=== PATIENT | female | born 1985 | race American Indian/Alaskan Native ===

== ENCOUNTER 2018-11-26 08:24 | Inpatient (IN) | payer MEDICAID ==
[2018-11-26] MEDS ORDERED: XYLOCAINE 2% INFILTRATI ONE (09:53)
[2018-11-26] MEDS ORDERED: PITOCin/NS 20 UNIT/1000ML DRIP 20 UNITS/1,000 ML BAG IV SCH (10:00)
[2018-11-26] MEDS ORDERED: LACTATED RINGERS 1,000 ML IV SCH (10:00)
--- NOTE | 2018-11-26 10:10 | History and Physical Report ---
History of Present Illness Date of examination: 11/26/18 Date of admission: 11/26/18 09:28 Chief complaint: Contractions History of present illness: 33 year old presented to L&D room and delivered a viable male prior to nurse notifying provider of patient's arrival here in labor. Patient received care at [facility] and records were able to be accessed. LMP 03/11/18. EDC 12/16/18. 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 labs are as follows: B+, antibody screen negative, hepatitis B surface antigen negative, HIV negative, RPR nonreactive, panorama low risk, AFP negative, 1 hour sugar test 80 mg/dl, chlamydia negative, gonorrhea negative, trichomonas negative, GBS negative. Patient denies headache, visual disturbance, nausea or vomiting, swelling, or epigastric pain. Past History Past Medical History: other (enlarged thyroid, subclinical hyperthyroidism, history of preeclampsia) Past Surgical History: no surgical history [facility] History: chlamydia (history of chlamydia prior to , treated and cured), gonorrhea (history of gonorrhea prior to , treated and cured), herpes (+ HSV 2 serology, on Valtrex suppression). denies: abnormal PAP smear, hepatitis B, hepatitis C, HIV, syphilis, trichomonas Family/Genetic History: hypertension, cancer Social history: single, lives with family, full code. denies: smoking, alcohol abuse, prescription drug abuse, IV drug use - Obstetrical History Expected Date of Delivery: 12/16/18 Actual Gestation: 37 Week(s) 1 Day(s) : 7 Para: 3 Hx # Term Pregnancies: 3 Number of Pregnancies: 0 Spontaneous Abortions: 3 Induced : 0 Number of Living Children: 3 Medications and Allergies Allergies Allergy/AdvReac Type Severity Reaction Status Date / Time No Known Allergies Allergy Verified 01/11/14 03:56 Home Medications Medication Instructions Recorded Confirmed Last Taken Type Ferrous Sulfate [Feosol 325 MG tab] 325 mg PO BID #60 tablet 01/05/14 04/04/15 01/10/14 Rx Ibuprofen [Motrin 600 MG tab] 600 mg PO Q6H PRN #30 tablet 01/05/14 04/04/15 01/23/14 09:00 Rx Vit-Fe Fumar-FA [ 1 each PO QDAY #30 tablet 01/05/14 04/04/15 01/10/14 Rx Vitamin] HYDROcodone/APAP 5-325 [[place] 1 each PO Q8HR PRN #7 tablet 01/11/14 04/04/15 01/23/14 09:00 Rx 5/325] Labetalol [Labetalol 200mg TAB] 100 mg PO BID #60 tablet 01/24/14 04/04/15 Unknown Rx Ibuprofen [Motrin 800 MG tab] 800 mg PO TID PRN #30 tablet 04/04/15 Unknown Rx Active Meds: Active Medications Oxytocin/Sodium Chloride (Pitocin/Ns 20 Unit/1000ml Drip) 20 units in 1,000 mls @ 125 mls/hr IV DIRECT RAFFY Lactated Ringer's (Lactated Ringers) 1,000 mls @ 125 mls/hr IV DIRECT RAFFY Labetalol HCl (Normodyne) 200 mg PO BID [facility] Review of Systems All systems: negative (contractions) - Vital Signs Vital signs: Vital Signs Pulse BP 64 162/94 11/26/18 09:45 11/26/18 09:45 Temp Pulse Resp BP Pulse Ox 70 157/77 11/26/18 10:00 11/26/18 10:00 - Physical Exam Abdomen: Positive: normal appearance, soft. Negative: distention, tenderness, guarding, rigidity Genitourinary (Female): Positive: normal external genitalia, normal perenium. Negative: perineal/vulvar lesions Vagina: Positive: other (moderate amount of lochia rubra) Uterus: Positive: enlarged, other (fundus firm and below umbilicus (first exam was done by provider after patient delivered en route to labor room)). Negative: tender Anus/Rectum: Positive: normal perianal skin Extremities: Positive: normal. Negative: tenderness, edema Results All other labs normal. Assessment and Plan A: at 37 1/7 weeks gestation, who delivered precipitously upon presentation to L&D unit and prior to provider being notified by nurse that patient was here in labor. Provider was notified after delivery of baby that patient had delivered, and placenta was delivered by CNM. P: Admit. BP monitoring. Preeclamptic labs. Labetalol 200 mg po BID. See orders.
--- NOTE | 2018-11-26 10:22 | Procedure Note ---
OB Delivery Note - Delivery Date of Delivery: 11/26/18 Surgeon: STEPHANIE VELEZ Estimated blood loss: 100cc - Vaginal Delivery presentation: vertex Delivery position: OA Intrapartum events: precipitous labor- <3hr (According to RN, patient delivered en route to labor room and prior to provider being notified that patient was here in labor) Delivery induction: none Delivery monitor: none Route of delivery: Delivery placenta: spontaneous Delivery cord: 3 umbilical vessels Episiotomy: none Delivery laceration: none Anesthesia: none Delivery comments: Precipitous spontaneous vaginal delivery at 09:20 of liveborn male weighing 4 lb. 13 oz. over intact perineum with apgars of 8/9. According to RN, patient delivered en route to labor room and prior to provider being notified that patient was here in labor or having contractions. Placenta delivered spontaneously and intact by nichols mechanism. EBL 100 cc. No lacerations noted. Vaginal sweep negative. Sponge count correct. Fundus firm and midline. IM Pitocin given. Mother and baby stable in birthing room.
[2018-11-26 10:54] LABS: Hematocrit 36.7 % (30.3-42.9); Hemoglobin 12.4 gm/dl (10.1-14.3); Mean Corpuscular HGB Conc 34 % (30-34); Mean Corpuscular Volume 89 fl (79-97); Platelet Count 192 K/mm3 (140-440); Red Blood Count 4.13 M/mm3 (3.65-5.03); Red Cell Distribution Width 14.2 % (13.2-15.2)
[2018-11-26 11:33] LABS: Alanine Aminotransferase 5 units/L (7-56); Albumin 3.7 g/dL (3.9-5); BUN/Creatinine Ratio 10; Blood Urea Nitrogen 6 mg/dL (7-17); Hemolysis Index 2
[2018-11-26] MEDS ORDERED: BENADRYL PO PRN (12:39)
[2018-11-26] MEDS ORDERED: TUCKS PAD TP PRN (12:39)
[2018-11-26] MEDS ORDERED: DULCOLAX PR PRN (12:39)
[2018-11-26] MEDS ORDERED: MILK OF MAGNESIA PO PRN (12:39)
[2018-11-26] MEDS ORDERED: LANSINOH TP PRN (12:39)
[2018-11-26] MEDS ORDERED: SODIUM CHLORIDE FLUSH SYRINGE 10 ML IV NR (13:00)
[2018-11-26] MEDS: IBUPROFEN PO SCH ×2 (13:07→20:53)
[2018-11-26 13:48] LABS: Bilirubin,Urine NEG (Negative); Blood,Urine LG (Negative); Color,Urine Red (Yellow); Urobilinogen,Urine < 2.0 mg/dL (<2.0)
[2018-11-26 13:50] LABS: RBC,Urine > 182.0 /HPF (0.0-6.0)
[2018-11-26 13:55] LABS: Amphetamine Screen,Urine PRESUMPTIVE NEGATIVE; Benzodiazepines Screen,Urine PRESUMPTIVE NEGATIVE; Cocaine Screen,Urine PRESUMPTIVE NEGATIVE; Methadone Screen,Urine PRESUMPTIVE NEGATIVE; Opiate Screen,Urine PRESUMPTIVE NEGATIVE
[2018-11-26 14:13] LABS: Cannabinoid Screen,Urine PRESUMPTIVE POSITIVE
[2018-11-26] MEDS: TYLENOL PO PRN (16:26)
[2018-11-26] MEDS: NORMODYNE PO SCH (21:04)
[2018-11-27] MEDS: TYLENOL PO PRN (00:47)
[2018-11-27 01:12] LABS: Hematocrit 30.4 % (30.3-42.9); Hemoglobin 10.2 gm/dl (10.1-14.3)
[2018-11-27] MEDS: IBUPROFEN PO SCH ×4 (02:53→21:52)
--- NOTE | 2018-11-27 10:24 | Progress Note ---
Assessment and Plan - Patient Problems (1) Status post normal vaginal delivery Current Visit: Yes Status: Acute Plan to address problem: PPD 1 Continue routine orders Anticipate discharge in 24 hours (2) Blood pressure elevated without history of HTN Current Visit: Yes Status: Acute Plan to address problem: Asymptomatic PIH labs 11/26/18 wnl Pt declining Labetolol (3) Positive urine drug screen Current Visit: Yes Status: Acute Plan to address problem: +marijuana Otm Consultant Consult ordered Subjective - Subjective Date of service: 11/27/18 Principal diagnosis: PPD #1, s/p Interval history: see H&P and OB Delivery Procedure Note Patient reports: appetite normal, voiding normally, pain well controlled, ambulating normally, other (denies headache, visual disturbances or RUQ pain), no dizzy ambulation : doing well Objective - Vital Signs Latest vital signs: Vital Signs Temp Pulse Resp BP BP Pulse Ox 11/27/18 07:56 98.6 F 61 18 149/63 11/27/18 01:31 98.5 F 58 L 20 139/88 100 11/26/18 21:04 64 141/73 11/26/18 20:59 98.2 F 60 18 141/73 99 11/26/18 15:59 98.3 F 57 L 18 111/67 99 11/26/18 12:09 62 98 11/26/18 11:45 97.5 F L 16 134/83 11/26/18 11:16 57 L 131/92 11/26/18 10:30 57 L 135/97 Intake and Output 11/26/18 11/27/18 11/27/18 23:59 07:59 15:59 Intake Total 960 960 Output Total 850 Balance 110 960 Intake: Oral 720 960 Intake, Free Water 240 Output: Urine 850 Void 850 Other: Total, Intake Amount 120 480 Total, Output Amount 300 # Voids Void 3 1 - Exam Abdomen: Present: normal appearance, soft Vulva: both: normal Uterus: Present: normal, firm, fundal height below umbilicus Extremities: Present: normal Comments: scant lochia - Labs Labs: Abnormal lab results 11/26/18 11/26/18 Range/Units 10:07 13:03 Sodium 135 L (137-145) mmol/L BUN 6 L (7-17) mg/dL Creatinine 0.6 L (0.7-1.2) mg/dL ALT 5 L (7-56) units/L Alkaline Phosphatase 136 H (35-129) units/L Lactate Dehydrogenase 191 H (91-180) units/L Albumin 3.7 L (3.9-5) g/dL Urine pH 8.0 H (5.0-7.0) Urine WBC (Auto) 8.0 H (0.0-6.0) /HPF
[2018-11-27] MEDS: FEOSOL PO SCH ×2 (10:39→21:49)
[2018-11-27] MEDS: NORMODYNE PO SCH ×2 (10:40→21:54)
[2018-11-28] MEDS: IBUPROFEN PO SCH ×2 (01:15→09:22)
[2018-11-28] MEDS: FEOSOL PO SCH (09:15)
[2018-11-28] MEDS: NORMODYNE PO SCH (09:17)
--- NOTE | 2018-11-28 09:34 | Progress Note ---
Assessment and Plan - Patient Problems (1) Status post normal vaginal delivery Current Visit: Yes Status: Acute Plan to address problem: D/C home today, see D/C instructions (2) Blood pressure elevated without history of HTN Current Visit: Yes Status: Acute Plan to address problem: F/U in 1 week in office for B/P check Subjective - Subjective Date of service: 11/28/18 Principal diagnosis: PPD #2, s/p Interval history: See admission H & P, OB delivery summary and PP progress notes Patient reports: appetite normal, voiding normally, pain well controlled, flatus, ambulating normally, no bowel movement [place]: doing well, bottle feeding (and ) Objective - Vital Signs Latest vital signs: Vital Signs Temp Pulse Resp BP BP Pulse Ox 11/28/18 09:17 69 126/83 11/28/18 08:30 98 F 69 18 126/83 100 11/28/18 05:28 98.0 F 56 L 20 112/63 100 11/27/18 21:54 56 L 136/72 11/27/18 21:48 136/72 11/27/18 19:00 62 127/61 11/27/18 17:11 98.6 F 55 L 18 113/72 11/27/18 10:40 61 149/63 Intake and Output 11/27/18 11/28/18 11/28/18 23:59 07:59 15:59 Intake Total 480 Balance 480 Intake: Oral 480 Other: Total, Intake Amount 480 - Exam Breasts: Present: normal Cardiovascular: Present: Regular rate Lungs: Present: Normal air movement Abdomen: Present: soft, normal bowel sounds Uterus: Present: firm, fundal height below umbilicus (U-1) Extremities: Present: normal Deep Tendon Reflex Grade: Normal +2
--- NOTE | 2018-11-28 09:38 | Discharge Summary ---
Providers - Providers Date of Admission: 11/26/18 09:28 Date of discharge: 11/28/18 Attending physician: ABHINAV GARCIA MD 11/27/18 09:28 Consult to Case Management [CONS] Routine Services Needed at Discharge: Rest Room Attendant Notified:: case management Phone number called:: [phone] Was contact made?: Yes If yes, spoke with:: Joslyn David Time called:: 09:30 Comment:: will come and see patient. Primary care physician: ABHINAV GARCIA MD Hospitalization Reason for admission: active labor Delivery: Episiotomy: none Laceration: none complications: none Discharge diagnosis: IUP at term delivered, other (Anemia) baby: male Hospital course: See admission H & P, OB delivery summary and PP progress notes Condition at discharge: Good Disposition: DC-01 TO HOME OR SELFCARE - Discharge Diagnoses (1) Status post normal vaginal delivery Status: Acute (2) Blood pressure elevated without history of HTN Status: Acute Plan - Provider Discharge Summary Activity: routine, no sex for 6 weeks, no heavy lifting 4 weeks, no strenuous exercise Diet: routine Instructions: routine Additional instructions: [] Smoking cessation referral if applicable(refer to patient education folder for contact #) [] Refer to [facility]'s [facility] Booklet Call your doctor immediately for: * Fever > 100.5 * Heavy vaginal bleeding ( >1 pad per hour) * Severe persistent headache * Shortness of breath * Reddened, hot, painful area to leg or breast * Drainage or odor from incision. * Follow up in office in 1 week for B/P check - Follow up plan Follow up: ABHINAV GARCIA MD [Primary Care Provider] - 7 Days
[2018-11-28 12:18] VITALS: BP 127/76
== END 2018-11-28 12:05 | disposition home or self-care (01) | DRG 775 ==
LOC: TRG 08:24 → LD 09:28 → OB 11:44
PROVIDERS: ADMIT Obstetrics & Gynecology; ATTEND Obstetrics & Gynecology
PROC: 10E0XZZ Delivery of Products of Conception, External Approach (ICD-10-PCS; principal; 2018-11-26)
DX: O62.3 Precipitate labor (principal); O99.324 Drug use complicating childbirth; F12.90 Cannabis use, unspecified, uncomplicated; R03.0 Elevated blood-pressure reading, without diagnosis of hypertension; O75.89 Other specified complications of labor and delivery; Z3A.37 37 weeks gestation of pregnancy; Z37.0 Single live birth; Z82.49 Family history of ischemic heart disease and other diseases of the circulatory system; Z80.9 Family history of malignant neoplasm, unspecified
CPT/HCPCS: 36415; 80053; 80307; 81001; 83615; 84439; 84443; 84550; 85014; 85018; 85027; 86592; 86850; 86900; 86901; G0378; J2590; J7120